=== PATIENT | male | born 1985 | race Caucasian/White ===

== ENCOUNTER 2017-08-27 18:52 | Emergency (ER) | payer OTHER ==
[2017-08-27] MEDS ORDERED: Morphine 4 MG/ML VIAL ONE (19:18)
[2017-08-27] MEDS ORDERED: Ondansetron ODT 8 MG TAB ONE (19:19)
--- NOTE | 2017-08-27 21:57 | ULT ---
SCROTAL ULTRASOUND: 08/27/2017 HISTORY: Right-sided pain. Evaluate for testicular torsion. COMPARISON: None. TECHNIQUE: Multiplanar nichols-scale sonographic imaging of the scrotal contents obtained with Doppler interrogatio n of the testicles, including color-flow and spectral analysis. FINDINGS: There is normal blood flow noted within both testicles. The right testicle measures 4.3 x 2.5 x 2.8 cm, and the left testicle measures 4.1 x 2.3 x 3.0 cm. The right epididymal head measures 1.2 x 0.9 x 1.3 cm, and the left epididymal head measures 1.2 x 0. 9 x 1.4 cm. No intratesticular or extratesticular mass lesion noted. Trace left-sided hydrocele. There is a right-sided varicocele. IMPRESSION: 1. No evidence for testicular torsion or epididymitis/orchitis. 2. Incidental note is made of a right-sided varicocele. Given unilateral right-sided varicocele, a follow-up CT examination is advised on a nonemergent basis, to evaluate for a retroperitoneal process such as mass. CODE T POS: FANTASMA
[2017-08-27 22:12] LABS: Bilirubin Negative (Negative); Blood, Urine Negative (Negative); Clarity TURBID (Clear); Glucose, Urine (Dipstick) Negative (Negative); Leukocyte Negative (Negative); Nitrite Negative (Negative); Protein, Urine (Dipstick) Negative (Neg-Trace); Specific Gravity, Urine 1.024 (1.002-1.036)
== END 2017-08-28 00:13 | disposition home or self-care (01) ==
LOC: ERS 18:52
DX: I86.1 Scrotal varices (principal); F17.220 Nicotine dependence, chewing tobacco, uncomplicated
CPT/HCPCS: 76870; 81003; 93976; 96374; J2270

== ENCOUNTER 2017-09-20 16:24 | Outpatient (CLI) | payer OTHER ==
[2017-09-20 17:35] LABS: Anion Gap 11 mmol/L (10-20); BUN (Urea Nitrogen) 6 mg/dL (8.9-20.6); Calc. Creatinine Clearance 0 mL/min (70-130); Carbon Dioxide 29 mmol/L (22-29); Chloride 100 mmol/L (98-107); Estimated GFR-MDRD Greater than 90; Glucose 82 mg/dL (70-105); Potassium 3.9 mmol/L (3.5-5.1); Sodium 136 mmol/L (136-145)
== END 2017-09-20 16:25 | disposition home or self-care (01) ==
LOC: LABBT 16:24
PROVIDERS: ATTEND Surgery
DX: Z01.812 Encounter for preprocedural laboratory examination (principal); K40.90 Unilateral inguinal hernia, without obstruction or gangrene, not specified as recurrent
CPT/HCPCS: 80048

== ENCOUNTER 2017-09-28 12:22 | Day surgery (SDC) | payer OTHER ==
[2017-09-20 16:36] VITALS: BMI 21.9
[2017-09-28] MEDS ORDERED: CEFAZOLIN/Water 2 GM/20 ML SYRINGE ONE (12:34)
[2017-09-28] MEDS ORDERED: ePHEDrine/0.9% NaCl/PF SYRINGE 50 mg/10 ml ONE (13:43)
[2017-09-28] MEDS ORDERED: Glycopyrrolate 0.2 MG/ML 5 ML SYRINGE ONE (13:43)
[2017-09-28] MEDS ORDERED: PROPOFOL 200 MG/20 ML VIAL ONE (13:43)
[2017-09-28] MEDS ORDERED: Lidocaine 1% PF 5 ML VIAL ONE (13:43)
[2017-09-28] MEDS ORDERED: PHENYLEPHRINE-NS 100 MCG/ML 10 ML SYRINGE ONE (13:43)
[2017-09-28] MEDS ORDERED: Dexamethasone 20 MG/5 ML VIAL ONE (13:43)
[2017-09-28] MEDS ORDERED: Ondansetron HCl/PF 4 MG/2 ML Vial ONE (13:43)
[2017-09-28] MEDS ORDERED: Bupivacaine/Epinephrine 0.25% 30 ML VIAL ONE (13:48)
[2017-09-28] MEDS ORDERED: HYDROmorphone 0.5 MG/0.5 ML SYRINGE ONE (14:28)
[2017-09-28] MEDS ORDERED: Fentanyl 100 MCG/2 ML VIAL ONE ×2 (15:53→16:33)
[2017-09-28] MEDS ORDERED: HYDROcodone/Acetaminophen 5/325 mg Tablet ONE (17:26)
--- NOTE | 2017-10-01 13:01 | OP ---
DATE OF PROCEDURE: 09/28/2017 PREOPERATIVE DIAGNOSIS: Right inguinal hernia. POSTOPERATIVE DIAGNOSIS: Bilateral inguinal hernia. PROCEDURE: Laparoscopic bilateral inguinal hernia repair with mesh, 3DMax medium. SURGEON: Cheng Liriano M.D. ANESTHESIA: General. ESTIMATED BLOOD LOSS: Minimal. COMPLICATIONS: None. SPECIMEN: None. FINDINGS: Bilateral inguinal hernia. TECHNIQUE: The patient was taken to the operating room and placed supine on the table. After genera l anesthetic was obtained, a Easton was placed. The abdomen was shaved, prepped, and draped in a ster ile fashion. Curved incision was made above the umbilicus, cut, dissected down to and score the fasc ia. Abdominal cavity entered bluntly using a Danielle clamp. Holding stitch of PDS placed on each side of the fascia. An 11-mm balloon trocar was placed. Balloon inflated and pulled back up against in the posterior abdominal wall. Left and right 8-mm robot trocars were placed under direct vision with out injury. The patient was placed in Trendelenburg position. All ports were docked to the robot. Surgeon goes to the console. The patient has bilateral inguinal hernia. A 3DMax medium mesh was bro ught in the right and the left and placed in through the camera port as our two 3-0 Vicryls and two 3 -0 Stratafix's. The peritoneum was taken down in the right lower quadrant into the preperitoneal spa ce. Preperitoneal space was bluntly dissected all the way to the pubic tubercle medially, the iliope ctineal line was fully exposed. The direct inguinal hernia was dissected out of the inguinal canal b ack up high onto the peritoneum. The cord structures are skeletonized. The left groin dissection wa s performed in the same way. The left indirect hernias was smaller, but the dissection was performed the same. The right and left meshes are placed into the preperitoneal space and an M labeled medial aspect was placed over pubic tubercles medially. The mesh was laid out to cover the femoral indirec t and direct areas. A 2-0 Vicryl was used to sew the bilateral mesh to the pubic tubercle medially a nd to the posterior fascia laterally. The 3-0 Stratafix was used to reapproximate the peritoneum on both sides. All four needles were removed from the abdomen and accounted for. All port sites were i agnieszka using local anesthetic. All ports were removed under the camera visualization. Pneumoperitone um was let down. PDS was used to close the fascial defect above the umbilicus. All incisions were i rrigated and closed using 4-0 Monocryl and Dermabond. The patient was en route to recovery in stable condition. All instrument counts, needle counts, lap counts were correct.
== END 2017-09-28 18:15 | disposition home or self-care (01) ==
LOC: SDC 12:22
PROVIDERS: ATTEND Surgery
PROC: 0YUA4JZ Supplement Bilateral Inguinal Region with Synthetic Substitute, Percutaneous Endoscopic Approach (ICD-10-PCS; principal; 2017-09-28)
DX: K40.20 Bilateral inguinal hernia, without obstruction or gangrene, not specified as recurrent (principal); F17.210 Nicotine dependence, cigarettes, uncomplicated
CPT/HCPCS: C1781; J1100; J1170; J2001; J2405; J2704; J3010